=== PATIENT | male | born 1980 | race Caucasian/White ===

== ENCOUNTER 2021-06-07 13:15 | Inpatient (IN) | payer OTHER ==
[2021-06-07 16:25] VITALS: BMI 21.6
[2021-06-07] MEDS ORDERED: guaiFENesin 200 MG/10 ML 10 ML UNIT-DOSE CUPS PO PRN (20:13)
[2021-06-07] MEDS ORDERED: ACETAMINOPHEN 325 MG TABLET (FP) PO PRN (20:13)
[2021-06-07] MEDS ORDERED: MAGNESIUM CITRATE 300 ML BOTTLE PO PRN (20:13)
[2021-06-07] MEDS ORDERED: LOPERAMIDE HCL 2 MG CAPSULE PO PRN (20:13)
[2021-06-07] MEDS ORDERED: MAGNESIUM HYDROX 2400MG/30ML ORAL SUSPENSION 30 ML CUP PO PRN (20:13)
[2021-06-07] MEDS ORDERED: P-EPHED 60MG/TRIPROLIDI 2.5MG TABLET PO PRN (20:13)
[2021-06-07] MEDS ORDERED: MAG HYDROX/AL HYDROX/SIMETH 30 ML UNIT-DOSE CUP PO PRN (20:13)
[2021-06-07] MEDS: THIAMINE HCL 100 MG TABLET (FP) PO SCH (22:08)
[2021-06-07] MEDS: MELATONIN 5 MG TABLETS PO SCH (22:09)
[2021-06-07] MEDS ORDERED: TUBERCULIN PPD 5 TU/0.1ML VIAL ID ONE (22:14)
[2021-06-08] MEDS: PRENATAL VITAMINS W/ FOLIC ACID TABLET (FP) PO SCH (10:00)
[2021-06-08] MEDS: NICOTINE 14 MG/24 HOURS TOPICAL PATCH TD SCH (10:00)
[2021-06-08 14:37] LABS: HEMATOCRIT 46.5 % (35.4-49); HEMOGLOBIN 16.1 GM/dL (11.7-16.9); MCH 33.7 pg (25.7-33.7); MCHC 34.7 g/dl (32.0-35.9); MEAN CELL VOLUME 97.1 fl (80-96); MEAN PLT VOLUME 10.3 fl (7.5-11.1); PLATELET COUNT 205 10^3/uL (134-434); RBC 4.78 M/mm3 (4.00-5.60)
[2021-06-08 14:50] LABS: BLOOD UREA NITROGEN 8.4 mg/dL (7-18); CALCIUM 8.6 mg/dL (8.5-10.1)
[2021-06-08 14:51] LABS: ALBUMIN 3.4 g/dl (3.4-5.0)
[2021-06-08 14:53] LABS: CREATININE 0.7 mg/dL (0.55-1.3)
[2021-06-08 14:55] LABS: BILIRUBIN,TOTAL 0.8 mg/dL (0.2-1); TOT PROT 5.9 g/dl (6.4-8.2)
[2021-06-08 15:30] LABS: HIV INTERPRETATION NEGATIVE (NEGATIVE)
[2021-06-08] MEDS: IBUPROFEN 400 MG TABLET (FP) PO PRN (17:29)
[2021-06-08] MEDS ORDERED: LIDOCAINE 5% TOPICAL PATCH TP ONE (19:32)
[2021-06-08] MEDS: THIAMINE HCL 100 MG TABLET (FP) PO SCH (21:09)
[2021-06-08] MEDS: MELATONIN 5 MG TABLETS PO SCH (21:09)
[2021-06-08] MEDS: METHOCARBAMOL 500 MG TABLET PO PRN (21:09)
[2021-06-08 21:59] LABS: PH,URINE 7.5 (5.0-8.0); URINE APPEARANCE CLEAR; URINE BILIRUBIN NEGATIVE (NEGATIVE); URINE COLOR YELLOW; URINE GLUCOSE (UA) NEGATIVE (NEGATIVE); URINE KETONE NEGATIVE (NEGATIVE); URINE LEUK ESTERASE NEGATIVE (NEGATIVE); URINE NITRITE NEGATIVE (NEGATIVE); URINE PROTEIN NEGATIVE (NEGATIVE); URINE UROBILINOGEN 0.2 mg/dL (0.2-1.0)
[2021-06-08] MEDS: NAPROXEN 500 MG TABLET PO SCH (22:48)
[2021-06-09] MEDS ORDERED: LIDOCAINE PATCH REMOVAL MC SCH (06:00)
[2021-06-09] MEDS: LIDOCAINE 5% TOPICAL PATCH TP SCH (09:13)
[2021-06-09] MEDS: PRENATAL VITAMINS W/ FOLIC ACID TABLET (FP) PO SCH (09:14)
[2021-06-09] MEDS: NAPROXEN 500 MG TABLET PO SCH ×2 (09:14→21:12)
[2021-06-09] MEDS: NICOTINE 14 MG/24 HOURS TOPICAL PATCH TD SCH (09:14)
[2021-06-09] MEDS: NICOTINE POLACRILEX 2 MG GUM BC PRN (10:36)
[2021-06-09] MEDS: NICOTINE 10 MG CARTRIDGE (INHALER) IH PRN ×3 (13:10→21:12)
[2021-06-09] MEDS: METHOCARBAMOL 500 MG TABLET PO PRN (17:19)
[2021-06-09] MEDS: THIAMINE HCL 100 MG TABLET (FP) PO SCH (21:12)
[2021-06-09] MEDS: MELATONIN 5 MG TABLETS PO SCH (21:12)
[2021-06-09] MEDS: LIDOCAINE PATCH REMOVAL MC SCH (21:57)
[2021-06-10] MEDS: LIDOCAINE 5% TOPICAL PATCH TP SCH (09:31)
[2021-06-10] MEDS: NICOTINE 14 MG/24 HOURS TOPICAL PATCH TD SCH (09:31)
[2021-06-10] MEDS: PRENATAL VITAMINS W/ FOLIC ACID TABLET (FP) PO SCH (09:32)
[2021-06-10] MEDS ORDERED: METHOCARBAMOL 750 MG TABLET PO PRN (10:15)
[2021-06-10] MEDS: NAPROXEN 500 MG TABLET PO SCH ×2 (10:26→21:29)
[2021-06-10] MEDS ORDERED: PT OWN MED DRAWER 7, Y5N ONE (13:32)
[2021-06-10] MEDS: IBUPROFEN 400 MG TABLET (FP) PO PRN (16:54)
[2021-06-10] MEDS: METHOCARBAMOL 500 MG TABLET PO PRN (18:34)
[2021-06-10] MEDS: LIDOCAINE PATCH REMOVAL MC SCH (21:30)
[2021-06-10] MEDS: THIAMINE HCL 100 MG TABLET (FP) PO SCH (21:30)
[2021-06-10] MEDS: MELATONIN 5 MG TABLETS PO SCH (21:30)
[2021-06-11] MEDS: NAPROXEN 500 MG TABLET PO SCH ×2 (10:05→21:47)
[2021-06-11] MEDS: PRENATAL VITAMINS W/ FOLIC ACID TABLET (FP) PO SCH (10:05)
[2021-06-11] MEDS: NICOTINE 14 MG/24 HOURS TOPICAL PATCH TD SCH (10:05)
[2021-06-11] MEDS: LIDOCAINE 5% TOPICAL PATCH TP SCH (10:06)
[2021-06-11] MEDS: NICOTINE POLACRILEX 2 MG GUM BC PRN (17:47)
[2021-06-11] MEDS: THIAMINE HCL 100 MG TABLET (FP) PO SCH (21:47)
[2021-06-11] MEDS: MELATONIN 5 MG TABLETS PO SCH (21:48)
[2021-06-11] MEDS: LIDOCAINE PATCH REMOVAL MC SCH (21:48)
[2021-06-11] MEDS ORDERED: OLANZapine 7.5 MG TABLET PO SCH (22:00)
[2021-06-11] MEDS: OLANZapine 5 MG TABLET PO SCH (22:18)
[2021-06-12] MEDS: NICOTINE 14 MG/24 HOURS TOPICAL PATCH TD SCH (09:55)
[2021-06-12] MEDS: LIDOCAINE 5% TOPICAL PATCH TP SCH (09:55)
[2021-06-12] MEDS: PRENATAL VITAMINS W/ FOLIC ACID TABLET (FP) PO SCH (09:56)
[2021-06-12] MEDS: METHOCARBAMOL 500 MG TABLET PO PRN (09:56)
[2021-06-12] MEDS: MELATONIN 5 MG TABLETS PO SCH (21:25)
[2021-06-12] MEDS: OLANZapine 5 MG TABLET PO SCH (21:25)
[2021-06-12] MEDS: THIAMINE HCL 100 MG TABLET (FP) PO SCH (21:25)
[2021-06-12] MEDS: LIDOCAINE PATCH REMOVAL MC SCH (21:40)
[2021-06-13] MEDS: LIDOCAINE 5% TOPICAL PATCH TP SCH (09:19)
[2021-06-13] MEDS: NICOTINE 14 MG/24 HOURS TOPICAL PATCH TD SCH (09:20)
[2021-06-13] MEDS: PRENATAL VITAMINS W/ FOLIC ACID TABLET (FP) PO SCH (09:20)
[2021-06-13] MEDS: METHOCARBAMOL 500 MG TABLET PO PRN (09:20)
[2021-06-13] MEDS: NICOTINE 10 MG CARTRIDGE (INHALER) IH PRN (15:47)
[2021-06-13] MEDS: BUPRENORPHINE/NALOXONE 4 MG/1 MG FILM PACKET SL SCH (15:49)
[2021-06-13] MEDS: LIDOCAINE PATCH REMOVAL MC SCH (21:36)
[2021-06-13] MEDS: OLANZapine 5 MG TABLET PO SCH (21:40)
[2021-06-13] MEDS: THIAMINE HCL 100 MG TABLET (FP) PO SCH (21:40)
[2021-06-13] MEDS: MELATONIN 5 MG TABLETS PO SCH (21:40)
[2021-06-14] MEDS: LIDOCAINE 5% TOPICAL PATCH TP SCH (09:46)
[2021-06-14] MEDS: BUPRENORPHINE/NALOXONE 4 MG/1 MG FILM PACKET SL SCH ×2 (09:46→15:45)
[2021-06-14] MEDS: PRENATAL VITAMINS W/ FOLIC ACID TABLET (FP) PO SCH (09:46)
[2021-06-14] MEDS: NICOTINE 14 MG/24 HOURS TOPICAL PATCH TD SCH (09:47)
[2021-06-14] MEDS ORDERED: BUPRENORPHINE/NALOXONE 4 MG/1 MG FILM PACKET SL SCH (15:04)
[2021-06-14] MEDS: METHOCARBAMOL 500 MG TABLET PO PRN (15:47)
[2021-06-14] MEDS: NICOTINE 10 MG CARTRIDGE (INHALER) IH PRN ×2 (16:47→21:36)
[2021-06-14] MEDS: THIAMINE HCL 100 MG TABLET (FP) PO SCH (21:34)
[2021-06-14] MEDS: MELATONIN 5 MG TABLETS PO SCH (21:34)
[2021-06-14] MEDS: OLANZapine 5 MG TABLET PO SCH (21:34)
[2021-06-14] MEDS: LIDOCAINE PATCH REMOVAL MC SCH (21:35)
[2021-06-15] MEDS: NICOTINE 14 MG/24 HOURS TOPICAL PATCH TD SCH (09:07)
[2021-06-15] MEDS: LIDOCAINE 5% TOPICAL PATCH TP SCH (09:07)
[2021-06-15] MEDS: METHOCARBAMOL 500 MG TABLET PO PRN ×2 (09:08→14:39)
[2021-06-15] MEDS: PRENATAL VITAMINS W/ FOLIC ACID TABLET (FP) PO SCH (09:08)
[2021-06-15] MEDS: BUPRENORPHINE/NALOXONE 4 MG/1 MG FILM PACKET SL SCH ×2 (09:08→13:23)
[2021-06-15] MEDS ORDERED: PT OWN MED DRAWER 7, Y5N ONE ×2 (14:39→15:05)
[2021-06-15] MEDS: OLANZapine 5 MG TABLET PO SCH (21:03)
[2021-06-15] MEDS: THIAMINE HCL 100 MG TABLET (FP) PO SCH (21:03)
[2021-06-15] MEDS: MELATONIN 5 MG TABLETS PO SCH (21:04)
[2021-06-15] MEDS: LIDOCAINE PATCH REMOVAL MC SCH (21:04)
[2021-06-16] MEDS: LIDOCAINE 5% TOPICAL PATCH TP SCH (09:33)
[2021-06-16] MEDS: NICOTINE 14 MG/24 HOURS TOPICAL PATCH TD SCH (09:33)
[2021-06-16] MEDS: PRENATAL VITAMINS W/ FOLIC ACID TABLET (FP) PO SCH (09:33)
[2021-06-16] MEDS: METHOCARBAMOL 500 MG TABLET PO PRN (09:34)
[2021-06-16] MEDS: BUPRENORPHINE/NALOXONE 4 MG/1 MG FILM PACKET SL SCH ×2 (09:34→13:07)
[2021-06-16] MEDS: NICOTINE 10 MG CARTRIDGE (INHALER) IH PRN ×2 (09:46→21:09)
[2021-06-16] MEDS ORDERED: PT OWN MED DRAWER 7, Y5N ONE ×3 (18:22→21:40)
[2021-06-16] MEDS: METHOCARBAMOL 750 MG TAB PO PRN (18:26)
[2021-06-16] MEDS: THIAMINE HCL 100 MG TABLET (FP) PO SCH (21:08)
[2021-06-16] MEDS: OLANZapine 5 MG TABLET PO SCH (21:08)
[2021-06-16] MEDS: MELATONIN 5 MG TABLETS PO SCH (21:11)
[2021-06-16] MEDS: LIDOCAINE PATCH REMOVAL MC SCH (21:11)
[2021-06-17] MEDS ORDERED: PT OWN MED DRAWER 7, Y5N ONE (08:57)
[2021-06-17] MEDS: NICOTINE 14 MG/24 HOURS TOPICAL PATCH TD SCH (09:38)
[2021-06-17] MEDS: BUPRENORPHINE/NALOXONE 4 MG/1 MG FILM PACKET SL SCH ×2 (09:38→13:53)
[2021-06-17] MEDS: LIDOCAINE 5% TOPICAL PATCH TP SCH (09:39)
[2021-06-17] MEDS: PRENATAL VITAMINS W/ FOLIC ACID TABLET (FP) PO SCH (09:39)
[2021-06-17] MEDS: NICOTINE 10 MG CARTRIDGE (INHALER) IH PRN (09:48)
[2021-06-17] MEDS: IBUPROFEN 400 MG TABLET (FP) PO PRN (18:17)
[2021-06-17] MEDS: THIAMINE HCL 100 MG TABLET (FP) PO SCH (21:34)
[2021-06-17] MEDS: OLANZapine 5 MG TABLET PO SCH (21:34)
[2021-06-17] MEDS: MELATONIN 5 MG TABLETS PO SCH (21:35)
[2021-06-17] MEDS: LIDOCAINE PATCH REMOVAL MC SCH (21:36)
[2021-06-18] MEDS: LIDOCAINE 5% TOPICAL PATCH TP SCH (09:28)
[2021-06-18] MEDS: NICOTINE 14 MG/24 HOURS TOPICAL PATCH TD SCH (09:28)
[2021-06-18] MEDS: PRENATAL VITAMINS W/ FOLIC ACID TABLET (FP) PO SCH (09:29)
[2021-06-18] MEDS: METHOCARBAMOL 750 MG TAB PO PRN ×2 (09:29→18:22)
[2021-06-18] MEDS: BUPRENORPHINE/NALOXONE 4 MG/1 MG FILM PACKET SL SCH ×2 (09:29→14:03)
[2021-06-18] MEDS ORDERED: PT OWN MED DRAWER 7, Y5N ONE (18:21)
[2021-06-18] MEDS: THIAMINE HCL 100 MG TABLET (FP) PO SCH (21:20)
[2021-06-18] MEDS: MELATONIN 5 MG TABLETS PO SCH (21:20)
[2021-06-18] MEDS: OLANZapine 5 MG TABLET PO SCH (21:21)
[2021-06-18] MEDS: LIDOCAINE PATCH REMOVAL MC SCH (21:22)
[2021-06-18] MEDS: NICOTINE 10 MG CARTRIDGE (INHALER) IH PRN (21:23)
[2021-06-19] MEDS: PRENATAL VITAMINS W/ FOLIC ACID TABLET (FP) PO SCH (09:55)
[2021-06-19] MEDS: BUPRENORPHINE/NALOXONE 4 MG/1 MG FILM PACKET SL SCH ×2 (09:55→13:57)
[2021-06-19] MEDS: LIDOCAINE 5% TOPICAL PATCH TP SCH (09:56)
[2021-06-19] MEDS: NICOTINE 14 MG/24 HOURS TOPICAL PATCH TD SCH (09:56)
[2021-06-19] MEDS: METHOCARBAMOL 750 MG TAB PO PRN (17:21)
[2021-06-19] MEDS ORDERED: PT OWN MED DRAWER 7, Y5N ONE (17:22)
[2021-06-19] MEDS: MELATONIN 5 MG TABLETS PO SCH (21:11)
[2021-06-19] MEDS: THIAMINE HCL 100 MG TABLET (FP) PO SCH (21:11)
[2021-06-19] MEDS: OLANZapine 5 MG TABLET PO SCH (21:12)
[2021-06-19] MEDS: LIDOCAINE PATCH REMOVAL MC SCH (21:12)
[2021-06-19] MEDS: NICOTINE 10 MG CARTRIDGE (INHALER) IH PRN (21:32)
[2021-06-20] MEDS: NICOTINE 14 MG/24 HOURS TOPICAL PATCH TD SCH (09:38)
[2021-06-20] MEDS: PRENATAL VITAMINS W/ FOLIC ACID TABLET (FP) PO SCH (09:38)
[2021-06-20] MEDS: BUPRENORPHINE/NALOXONE 4 MG/1 MG FILM PACKET SL SCH ×2 (09:38→13:57)
[2021-06-20] MEDS: LIDOCAINE 5% TOPICAL PATCH TP SCH (09:38)
[2021-06-20] MEDS: NICOTINE 10 MG CARTRIDGE (INHALER) IH PRN (09:50)
[2021-06-20] MEDS: METHOCARBAMOL 750 MG TAB PO PRN (17:47)
[2021-06-20] MEDS ORDERED: PT OWN MED DRAWER 7, Y5N ONE (17:47)
[2021-06-20] MEDS: THIAMINE HCL 100 MG TABLET (FP) PO SCH (21:11)
[2021-06-20] MEDS: MELATONIN 5 MG TABLETS PO SCH (21:12)
[2021-06-20] MEDS: OLANZapine 5 MG TABLET PO SCH (21:12)
[2021-06-20] MEDS: LIDOCAINE PATCH REMOVAL MC SCH (21:13)
[2021-06-21 07:18] VITALS: BP 130/84; PULSE 67; TEMP 97.2
[2021-06-21] MEDS: LIDOCAINE 5% TOPICAL PATCH TP SCH (09:16)
[2021-06-21] MEDS: PRENATAL VITAMINS W/ FOLIC ACID TABLET (FP) PO SCH (09:17)
[2021-06-21] MEDS: NICOTINE 14 MG/24 HOURS TOPICAL PATCH TD SCH (09:17)
[2021-06-21] MEDS: NICOTINE 10 MG CARTRIDGE (INHALER) IH PRN (09:18)
[2021-06-21] MEDS ORDERED: BUPRENORPHINE/NALOXONE 4 MG/1 MG FILM PACKET SL SCH (10:00)
== END 2021-06-21 09:32 | disposition home or self-care (01) | DRG 772 ==
LOC: YASAS 13:15 → Y3E 20:47
PROVIDERS: ADMIT Allergy & Immunology; ATTEND Allergy & Immunology
PROC: HZ42ZZZ Group Counseling for Substance Abuse Treatment, Cognitive-Behavioral (ICD-10-PCS; principal; 2021-06-07)
DX: F14.20 Cocaine dependence, uncomplicated (principal); F12.20 Cannabis dependence, uncomplicated; F17.210 Nicotine dependence, cigarettes, uncomplicated; F25.9 Schizoaffective disorder, unspecified; F31.9 Bipolar disorder, unspecified; B18.2 Chronic viral hepatitis C; G81.94 Hemiplegia, unspecified affecting left nondominant side; Z87.820 Personal history of traumatic brain injury; Z99.89 Dependence on other enabling machines and devices; Z51.81 Encounter for therapeutic drug level monitoring
CPT/HCPCS: 36415; 80053; 81003; 85027; 86780; 87389; 93005; 93010; C9803; U0003; U0005